=== PATIENT | male | born 1960 | race Caucasian/White ===

== ENCOUNTER 2018-10-22 07:43 | Emergency (ER) | payer MEDICAID, OTHER ==
[~2018-10-22] VITALS: Ht 177.8 cm; Wt 110.0 kg
[~2018-10-22 07:43] MED LIST: ALB0.5UD IH; OMEP40CA37 PO
[2018-10-22 07:47] VITALS: BP 118/67
[2018-10-22] MEDS ORDERED: acetaminophen 325mg tablet PO ONE (08:00)
[2018-10-22] MEDS ORDERED: ibuprofen tablet 400 MG TABLET PO ONE (08:00)
[2018-10-22] MEDS ORDERED: WHEE1EAC12 MC (08:44)
--- NOTE | 2018-10-22 10:51 | NUR ---
CASE MANAGMENT PAGED [id number]
--- NOTE | 2018-10-22 11:53 | NUR ---
spoke with case management, social worker psychiatric is attempting to get patient a wheelchair, free of charge, discharged to the lobby
== END 2018-10-22 11:53 | disposition home or self-care (01) ==
LOC: ER 07:43
DX: S82.62XA Displaced fracture of lateral malleolus of left fibula, initial encounter for closed fracture (principal); F12.10 Cannabis abuse, uncomplicated; Z59.0 Homelessness; Z88.8 Allergy status to other drugs, medicaments and biological substances; W22.8XXA Striking against or struck by other objects, initial encounter; Y93.89 Activity, other specified; Y92.89 Other specified places as the place of occurrence of the external cause; Y99.8 Other external cause status
CPT/HCPCS: 29515; 73610; 97116; 97161; 99284

== ENCOUNTER 2018-11-24 16:03 | Inpatient (IN) | payer MEDICAID | END 2018-11-27 17:07 | disposition left against medical advice (07) | LOC: ER 16:03 → ED HOLD 19:20 → SUR 3N 20:30 | DX: K85.90 Acute pancreatitis without necrosis or infection, unspecified (principal); I11.0 Hypertensive heart disease with heart failure; I50.9 Heart failure, unspecified; F10.20 Alcohol dependence, uncomplicated; Z72.0 Tobacco use ==

== ENCOUNTER 2019-05-13 18:00 | Emergency (ER) | payer MEDICAID ==
[~2019-05-13] VITALS: Ht 177.8 cm; Wt 94.8 kg
[~2019-05-13 18:00] MED LIST changes: -ALB0.5UD IH; +NO HOME MEDS; -OMEP40CA37 PO
[2019-05-13] MEDS ORDERED: LORazepam 2 mg/ml vial IV ONE (18:05)
[2019-05-13] MEDS ORDERED: normal saline 1000ML IV soln IVB ONE ×2 (18:05)
[2019-05-13] MEDS ORDERED: diphenhydrAMINE 50 mg/ml inj IV ONE (18:05)
[2019-05-13] MEDS ORDERED: metoclopramide 5 mg/ml inj IV ONE (18:05)
[2019-05-13 19:43] LABS: BASOPHILS # (AUTO) 0.1 X10'3 (0-0.2); HEMOGLOBIN 15.7 g/dl (14.0-17.9); MEAN CORPUSCULAR VOLUME 102.2 FL (78-98); PLATELET COUNT 201 X10'3 (140-440)
[2019-05-13 19:45] LABS: BASOPHILS % (AUTO) 0.9 % (0-1); EOSINOPHILS # (AUTO) 0.2 X10'3 (0-0.9); EOSINOPHILS % (AUTO) 1.4 % (0-6); HEMATOCRIT 45.1 % (42.0-52.0); LYMPHOCYTES # (AUTO) 3.2 X10'3 (1.1-4.8); LYMPHOCYTES % (AUTO) 28.9 % (21-51); MEAN CORPUSCULAR HEMOGLOBIN 35.5 PG (27.0-31.0); MEAN CORPUSCULAR HGB CONC 34.8 g/dL (33.0-36.5); MEAN PLATELET VOLUME 7.8 FL (7.4-10.4); MONOCYTES % (AUTO) 8.7 % (2-12); NEUTROPHILS # (AUTO) 6.8 X10'3 (1.8-7.7); NEUTROPHILS % (AUTO) 60.1 % (42-75); RED BLOOD COUNT 4.42 X10'6 (4.70-6.10); WHITE BLOOD COUNT 11.2 X10'3 (4.5-11.0)
[2019-05-13 20:17] LABS: ALANINE AMINOTRANSFERASE 45 U/L (12-78); ALBUMIN 3.8 G/DL (3.4-5.0); ALBUMIN/GLOBULIN RATIO 0.9 (1.1-1.5); ALKALINE PHOSPHATASE 71 IU/L (46-116); ANION GAP 7 (8-16); ASPARTATE AMINO TRANSFERASE 31 U/L (10-37); BILIRUBIN,TOTAL 1.4 MG/DL (0.1-1.0); BLOOD UREA NITROGEN 9 MG/DL (7-18); BUN/CREATININE RATIO 9.9 (5.4-32.0); CALCIUM 9.3 MG/DL (8.5-10.1); CHLORIDE 99 MMOL/L (99-107); CREATININE 0.91 MG/DL (0.60-1.10); GLUCOSE 108 MG/DL (70-104); LIPASE 405 U/L (73-393); POTASSIUM 3.9 MMOL/L (3.5-5.1); SODIUM 133 MMOL/L (135-145); TOTAL PROTEIN 8.2 G/DL (6.4-8.2); eGFR 86 ML/MIN
[2019-05-13] MEDS ORDERED: ketorolac trometh. 30mg/ml inj. IV ONE (21:20)
--- NOTE | 2019-05-13 21:27 | NUR ---
PT REFUSED BENADRYL STATING THAT IT MAKES HIM "Jittery". MD nuñez
[2019-05-13] MEDS ORDERED: ONDA4TAB12 PO (21:51)
[2019-05-13] MEDS ORDERED: DICY10CA88 PO (21:51)
[2019-05-13 22:07] VITALS: BP 110/62
== END 2019-05-13 22:20 | disposition home or self-care (01) ==
LOC: ER 18:01
DX: R10.9 Unspecified abdominal pain (principal); R11.10 Vomiting, unspecified; I50.9 Heart failure, unspecified; I11.0 Hypertensive heart disease with heart failure; I25.2 Old myocardial infarction; J44.9 Chronic obstructive pulmonary disease, unspecified; F17.210 Nicotine dependence, cigarettes, uncomplicated; F12.90 Cannabis use, unspecified, uncomplicated; Z86.69 Personal history of other diseases of the nervous system and sense organs; Z98.890 Other specified postprocedural states; Z59.0 Homelessness; Z88.8 Allergy status to other drugs, medicaments and biological substances
CPT/HCPCS: 36415; 80053; 83690; 85025; 96361; 96374; 96375; 99283; J1200; J1885; J2060; J2765; J7030